=== PATIENT | male | born 1945 | race Caucasian/White ===

== ENCOUNTER 2022-04-11 21:20 | Inpatient (IN) | payer MEDICARE, BC ==
[~2022-04-11] VITALS: Ht 193 cm; Wt 107.0 kg
[2022-04-11 22:52] LABS: Basophils # (auto) 0 10 ^3/uL (0-0.2); Basophils % (auto) 0.2 % (0.0-2.0); Eosinophils # (auto) 0 10 ^3/uL (0-0.8); Hematocrit 48.9 % (41.0-53.0); Hemoglobin 16.8 g/dL (13.5-17.5); Lymphocytes # (auto) 1.1 10 ^3/uL (0.4-5.4); Lymphocytes % (auto) 7.8 % (10.0-50.0); Mean Corpuscular Hemoglobin 32.7 pg (28.0-32.0); Mean Corpuscular Hgb Conc. 34.3 g/dL (32.0-36.0); Mean Corpuscular Volume 95.4 fL (80.0-100.0); Monocytes # (auto) 0.9 10 ^3/uL (0-1.3); Monocytes % (auto) 6.1 % (0.0-12.0); Neutrophils # (auto) 12.7 10 ^3/uL (1.6-8.6); Neutrophils % (auto) 85.9 % (37.0-80.0); Red Blood Cells 5.13 10^6/uL (4.5-5.90); Red Cell Distribution Width 13.7 % (11.8-14.3); White Blood Cell 14.8 10^3/uL (4.4-10.8)
[2022-04-11 23:11] LABS: Albumin 3.4 g/dL (3.4-5.0); BUN/Creatinine Ratio 13.6; Calcium 9.6 mg/dL (8.5-10.1); Potassium 4.2 mmol/L (3.5-5.1)
[2022-04-11 23:14] LABS: Bilirubin, Total 1.5 mg/dL (0.2-1.0); Total Protein 7.1 g/dL (6.4-8.2)
[2022-04-11] MEDS: SODIUM CHLORIDE 0.9% 1,000 ML IV SCH (23:20)
[2022-04-12] MEDS ORDERED: cefTRIAXone 1GM/50ML D5W 50 ML IV ONE (10:15)
[2022-04-12] MEDS ORDERED: AZITHROMYCIN 500MG/ 250ML 250 ML IV ONE (10:15)
[2022-04-12] MEDS ORDERED: IPRATROPIUM BROM 0.5 MG/2.5ML INH SOL NEB ONE (10:15)
[2022-04-12] MEDS ORDERED: ALBUTEROL SULF 2.5 MG/0.5ML(0.5%) NEB SOLN NEB ONE (10:15)
[2022-04-12] MEDS ORDERED: IPRATROPIUM BROM 0.5 MG/2.5ML INH SOL ONE (10:26)
[2022-04-12] MEDS ORDERED: ALBUTEROL SULF 2.5 MG/0.5ML(0.5%) NEB SOLN ONE (10:26)
[2022-04-12] MEDS ORDERED: NICOTINE 21MG/24 HR TOPICAL PATCH TD ONE (10:45)
[2022-04-12] MEDS ORDERED: levoFLOXacin 500MG 100 ML IV ONE (10:45)
[2022-04-12] MEDS ORDERED: ALBUTEROL SULF 2.5 MG/0.5ML(0.5%) NEB SOLN NEB PRN (10:45)
[2022-04-12] MEDS ORDERED: SODIUM CHLORIDE 0.9% 500 ML IV ONE (10:45)
[2022-04-12] MEDS ORDERED: IPRATROPIUM BROM 0.5 MG/2.5ML INH SOL NEB PRN (10:45)
[2022-04-12] MEDS ORDERED: DexAMETHasone SOD PHOS 10MG/1ML VIAL INJ IV ONE (10:45)
[2022-04-12 11:10] LABS: Urine Bacteria NONE SEEN /hpf (None Seen); Urine Blood Negative /uL (Negative); Urine Hyaline Cast FEW /lpf (0 - 2); Urine Mucus FEW (None Seen); Urine Specific Gravity 1.034 (1.001-1.035); Urine WBC 6 /hpf (0 - 3)
[2022-04-12 11:26] LABS: Cholesterol 159 mg/dL (< 200)
[2022-04-12 11:29] LABS: HDL Cholesterol 48 mg/dL (40-59); LDL Cholesterol 89 mg/dL (< 100); Triglycerides 176 mg/dL (< 150)
[2022-04-12] MEDS: IPRATROPIUM BROM 0.5 MG/2.5ML INH SOL NEB SCH ×2 (12:00→18:54)
[2022-04-12] MEDS: ALBUTEROL SULF 2.5 MG/0.5ML(0.5%) NEB SOLN NEB SCH ×2 (12:00→18:54)
[2022-04-12 12:14] LABS: Amphetamine Screen, Urine NEGATIVE (NEGATIVE); Barbiturate Scree,Urine NEGATIVE (NEGATIVE); Benzodiazephine Screen, Urine NEGATIVE (NEGATIVE); Cannabinoid Screen, Urine NEGATIVE (NEGATIVE); Cocaine Screen, Urine NEGATIVE (NEGATIVE); Phencyclidine Screen, Urine NEGATIVE (NEGATIVE)
[2022-04-12 12:16] LABS: Opiate Scree,Urine NEGATIVE (NEGATIVE)
[2022-04-12] MEDS: SODIUM CHLORIDE 0.9% 1,000 ML IV SCH ×2 (13:14→20:45)
[2022-04-12 13:34] VITALS: BP 127/59
[2022-04-12] MEDS ORDERED: IOHEXOL 350 MG/ML 100ML IJ ONE (17:20)
[2022-04-13] MEDS: ALBUTEROL SULF 2.5 MG/0.5ML(0.5%) NEB SOLN NEB SCH ×3 (05:29→19:07)
[2022-04-13] MEDS: IPRATROPIUM BROM 0.5 MG/2.5ML INH SOL NEB SCH ×3 (05:29→19:07)
[2022-04-13 06:15] LABS: Albumin 2.8 g/dL (3.4-5.0); BUN/Creatinine Ratio 21.5; Calcium 9.7 mg/dL (8.5-10.1); Potassium 4.5 mmol/L (3.5-5.1)
[2022-04-13 06:19] LABS: Basophils # (auto) 0 10 ^3/uL (0-0.2); Basophils % (auto) 0.1 % (0.0-2.0); Bilirubin, Total 0.8 mg/dL (0.2-1.0); Eosinophils # (auto) 0 10 ^3/uL (0-0.8); Hematocrit 42.9 % (41.0-53.0); Hemoglobin 14.9 g/dL (13.5-17.5); Lymphocytes # (auto) 0.7 10 ^3/uL (0.4-5.4); Lymphocytes % (auto) 7.4 % (10.0-50.0); Mean Corpuscular Hemoglobin 33.1 pg (28.0-32.0); Mean Corpuscular Hgb Conc. 34.6 g/dL (32.0-36.0); Mean Corpuscular Volume 95.7 fL (80.0-100.0); Monocytes # (auto) 0.4 10 ^3/uL (0-1.3); Monocytes % (auto) 3.9 % (0.0-12.0); Neutrophils # (auto) 8.6 10 ^3/uL (1.6-8.6); Neutrophils % (auto) 88.6 % (37.0-80.0); Nucleated Red Blood Cells % 0.1 %; Red Blood Cells 4.48 10^6/uL (4.5-5.90); Red Cell Distribution Width 13.7 % (11.8-14.3); Total Protein 6.7 g/dL (6.4-8.2); White Blood Cell 9.7 10^3/uL (4.4-10.8)
[2022-04-13] MEDS: SODIUM CHLORIDE 0.9% 1,000 ML IV SCH ×2 (07:39→17:27)
[2022-04-13 09:00] VITALS: BP 144/66
[2022-04-13] MEDS: ENOXAPARIN SOD 40 MG/0.4 ML SYRINGE SC SCH (09:31)
[2022-04-13] MEDS: NICOTINE 21MG/24 HR TOPICAL PATCH TD SCH (09:32)
[2022-04-13] MEDS ORDERED: AZITHROMYCIN 500MG/ 250ML 250 ML IV SCH (10:00)
[2022-04-13] MEDS ORDERED: TIMO0.5S66 EACHEYE (11:40)
[2022-04-13 13:00] VITALS: BP 131/72
[2022-04-13] MEDS ORDERED: levoFLOXacin 750MG 150 ML IV ONE (16:00)
[2022-04-13] MEDS ORDERED: LORazepam 2MG/ML-1ML VIAL IV ONE (16:00)
[2022-04-13] MEDS ORDERED: DEXTROSE (50%) 50ML SYRG IV PRN (16:00)
[2022-04-13] MEDS ORDERED: MULTIPLE VITAMINS W/ MINERALS TAB PO ONE (16:00)
[2022-04-13] MEDS ORDERED: THIAMINE 100mg/ml INJ (200mg/2ml VIAL) IV ONE (16:00)
[2022-04-13] MEDS ORDERED: FOLIC ACID 1 MG TAB PO ONE (16:00)
[2022-04-13 17:07] VITALS: BP 154/74
[2022-04-13] MEDS: ACCU-CHEK COMFORT CURVE STRIP VI SCH ×2 (17:46→22:29)
[2022-04-13] MEDS: InsuLIN REG 1unit/0.01ml Soln (100units/ml) SC SCH ×2 (17:47→22:30)
[2022-04-13 22:00] VITALS: BP 85/51
[2022-04-13] MEDS: INSULIN LANTUS (GLARGINE) 1 /0.01ml (100units/ml) SC SCH (22:29)
[2022-04-14] MEDS: SODIUM CHLORIDE 0.9% 1,000 ML IV SCH (04:44)
[2022-04-14 05:00] VITALS: BP 121/52
[2022-04-14] MEDS: ACCU-CHEK COMFORT CURVE STRIP VI SCH ×4 (06:14→22:19)
[2022-04-14] MEDS: InsuLIN REG 1unit/0.01ml Soln (100units/ml) SC SCH ×4 (06:15→22:21)
[2022-04-14 06:23] LABS: Basophils # (auto) 0 10 ^3/uL (0-0.2); Basophils % (auto) 0.2 % (0.0-2.0); Eosinophils # (auto) 0 10 ^3/uL (0-0.8); Eosinophils % (auto) 0.1 % (0.0-7.0); Hematocrit 40.5 % (41.0-53.0); Hemoglobin 14.1 g/dL (13.5-17.5); Lymphocytes # (auto) 1.6 10 ^3/uL (0.4-5.4); Mean Corpuscular Hemoglobin 33.3 pg (28.0-32.0); Mean Corpuscular Hgb Conc. 34.9 g/dL (32.0-36.0); Mean Corpuscular Volume 95.6 fL (80.0-100.0); Monocytes # (auto) 0.7 10 ^3/uL (0-1.3); Monocytes % (auto) 6.9 % (0.0-12.0); Neutrophils # (auto) 8.1 10 ^3/uL (1.6-8.6); Neutrophils % (auto) 77.8 % (37.0-80.0); Nucleated Red Blood Cells % 0.1 %; Red Blood Cells 4.23 10^6/uL (4.5-5.90); Red Cell Distribution Width 13.4 % (11.8-14.3); White Blood Cell 10.5 10^3/uL (4.4-10.8)
[2022-04-14 06:27] LABS: BUN/Creatinine Ratio 32.2; Calcium 9.3 mg/dL (8.5-10.1); Magnesium 2.7 mg/dL (1.6-2.6)
[2022-04-14] MEDS: IPRATROPIUM BROM 0.5 MG/2.5ML INH SOL NEB SCH ×3 (06:39→20:05)
[2022-04-14] MEDS: ALBUTEROL SULF 2.5 MG/0.5ML(0.5%) NEB SOLN NEB SCH ×3 (06:39→20:05)
[2022-04-14 06:42] LABS: INR 0.99 (0.9-1.15)
[2022-04-14 08:00] VITALS: BP_SYST 137; BP_SYST 142; BP_DIAS 59; BP_DIAS 72
[2022-04-14] MEDS: levoFLOXacin 750MG 150 ML IV SCH (09:40)
[2022-04-14] MEDS: NICOTINE 21MG/24 HR TOPICAL PATCH TD SCH (09:40)
[2022-04-14] MEDS: PANTOPRAZOLE 40 MG TAB PO SCH (09:43)
[2022-04-14] MEDS: ENOXAPARIN SOD 40 MG/0.4 ML SYRINGE SC SCH (09:43)
[2022-04-14] MEDS: ASPirin-EC 81 mg tab PO SCH (09:43)
[2022-04-14] MEDS: THIAMINE 100mg/ml INJ (200mg/2ml VIAL) IV SCH (09:43)
[2022-04-14] MEDS: MULTIPLE VITAMINS W/ MINERALS TAB PO SCH (09:43)
[2022-04-14] MEDS: FOLIC ACID 1 MG TAB PO SCH (09:45)
[2022-04-14 12:00] VITALS: BP 150/68
[2022-04-14] MEDS ORDERED: CHOLECALCIFEROL (VITD3) 2,000 UNIT CAP/TAB PO ONE (14:00)
[2022-04-14 17:00] VITALS: BP 134/62
[2022-04-14 22:00] VITALS: BP 113/65
[2022-04-14] MEDS: INSULIN LANTUS (GLARGINE) 1 /0.01ml (100units/ml) SC SCH (22:20)
[2022-04-15 05:00] VITALS: BP 148/67
[2022-04-15] MEDS: ACCU-CHEK COMFORT CURVE STRIP VI SCH ×4 (06:19→21:59)
[2022-04-15] MEDS: InsuLIN REG 1unit/0.01ml Soln (100units/ml) SC SCH ×4 (06:19→22:02)
[2022-04-15] MEDS: IPRATROPIUM BROM 0.5 MG/2.5ML INH SOL NEB SCH ×3 (06:31→19:24)
[2022-04-15] MEDS: ALBUTEROL SULF 2.5 MG/0.5ML(0.5%) NEB SOLN NEB SCH ×3 (06:32→19:24)
[2022-04-15] MEDS: MULTIPLE VITAMINS W/ MINERALS TAB PO SCH (09:00)
[2022-04-15] MEDS: levoFLOXacin 750MG 150 ML IV SCH (09:00)
[2022-04-15] MEDS: ENOXAPARIN SOD 40 MG/0.4 ML SYRINGE SC SCH (09:00)
[2022-04-15] MEDS: NICOTINE 21MG/24 HR TOPICAL PATCH TD SCH (09:00)
[2022-04-15] MEDS: ASPirin-EC 81 mg tab PO SCH (09:01)
[2022-04-15] MEDS: FOLIC ACID 1 MG TAB PO SCH (09:01)
[2022-04-15] MEDS: CHOLECALCIFEROL (VITD3) 2,000 UNIT CAP/TAB PO SCH (09:01)
[2022-04-15] MEDS: PANTOPRAZOLE 40 MG TAB PO SCH (09:01)
[2022-04-15] MEDS: THIAMINE 100mg/ml INJ (200mg/2ml VIAL) IV SCH (09:01)
[2022-04-15 09:30] VITALS: BP 107/52
[2022-04-15 10:43] VITALS: BP 107/52
[2022-04-15 16:38] VITALS: BP 130/66
[2022-04-15] MEDS: INSULIN LANTUS (GLARGINE) 1 /0.01ml (100units/ml) SC SCH (22:03)
[2022-04-15 22:10] VITALS: BP 113/51
[2022-04-16 05:20] VITALS: BP 120/62
[2022-04-16] MEDS: ACCU-CHEK COMFORT CURVE STRIP VI SCH ×2 (06:15→12:28)
[2022-04-16] MEDS: InsuLIN REG 1unit/0.01ml Soln (100units/ml) SC SCH ×2 (06:19→12:29)
[2022-04-16] MEDS: IPRATROPIUM BROM 0.5 MG/2.5ML INH SOL NEB SCH ×2 (07:12→12:00)
[2022-04-16] MEDS: ALBUTEROL SULF 2.5 MG/0.5ML(0.5%) NEB SOLN NEB SCH ×2 (07:12→12:00)
[2022-04-16 09:00] VITALS: BP 129/58
[2022-04-16] MEDS: levoFLOXacin 750MG 150 ML IV SCH (10:14)
[2022-04-16] MEDS: THIAMINE 100mg/ml INJ (200mg/2ml VIAL) IV SCH (10:14)
[2022-04-16] MEDS: ENOXAPARIN SOD 40 MG/0.4 ML SYRINGE SC SCH (10:15)
[2022-04-16] MEDS: CHOLECALCIFEROL (VITD3) 2,000 UNIT CAP/TAB PO SCH (10:15)
[2022-04-16] MEDS: PANTOPRAZOLE 40 MG TAB PO SCH (10:15)
[2022-04-16] MEDS: FOLIC ACID 1 MG TAB PO SCH (10:15)
[2022-04-16] MEDS: ASPirin-EC 81 mg tab PO SCH (10:15)
[2022-04-16] MEDS: MULTIPLE VITAMINS W/ MINERALS TAB PO SCH (10:15)
[2022-04-16] MEDS: NICOTINE 21MG/24 HR TOPICAL PATCH TD SCH (10:16)
[2022-04-16] MEDS ORDERED: INSLANTI SC (12:01)
[2022-04-16] MEDS ORDERED: MULT-351 PO (12:01)
[2022-04-16] MEDS ORDERED: ALBUAER3 IN (12:01)
[2022-04-16] MEDS ORDERED: METF-371 PO (12:01)
[2022-04-16] MEDS ORDERED: LEVO750T8 PO (12:01)
[2022-04-16] MEDS ORDERED: CHOL20007 PO (12:01)
[2022-04-16] MEDS ORDERED: NIC21P TOP (12:01)
== END 2022-04-16 15:17 | disposition home health service (06) | DRG 177 ==
LOC: EDBD 21:20 → ER 21:25 → TELE 04-12 10:39 → TELE-WESTW 04-13 09:08
PROVIDERS: ADMIT Registered Nurse; ATTEND Internal Medicine
DX: J69.0 Pneumonitis due to inhalation of food and vomit (principal); J96.01 Acute respiratory failure with hypoxia; J44.1 Chronic obstructive pulmonary disease with (acute) exacerbation; J98.11 Atelectasis; R91.1 Solitary pulmonary nodule; F17.210 Nicotine dependence, cigarettes, uncomplicated; E11.9 Type 2 diabetes mellitus without complications; E55.9 Vitamin D deficiency, unspecified; G20 Parkinson's disease; R80.9 Proteinuria, unspecified; F10.10 Alcohol abuse, uncomplicated; R81 Glycosuria; Z88.0 Allergy status to penicillin; Z71.6 Tobacco abuse counseling; Z20.822 Contact with and (suspected) exposure to COVID-19
CPT/HCPCS: 36415; 36600; 70450; 70551; 71045; 71275; 74176; 80048; 80053; 80061; 80307; 80320; 81001; 82306; 82805; 82962; 83036; 83605; 83735; 83880; 84443; 84484; 85025; 85379; 85610; 87040; 87086; 93005; 93306; 93886; 94640; 97110; 97116; 97163; 97530; G0378; J1100; J1815; J1956

== ENCOUNTER 2022-12-11 08:00 | Inpatient (IN) | payer MEDICARE, BC ==
[~2022-12-11] VITALS: Ht 193 cm; Wt 91.2 kg
[~2022-12-11 08:00] MED LIST: ALBUAER3 IN; INSLANTI SC; LEVO750T8 PO; METF-371 PO; MULT-351 PO; NIC21P TOP; TIMO0.5S66 EACHEYE
[2022-12-11 09:33] LABS: Basophils # (auto) 0 10 ^3/uL (0-0.2); Basophils % (auto) 0.3 % (0.0-2.0); Eosinophils # (auto) 0.1 10 ^3/uL (0-0.8); Eosinophils % (auto) 1.1 % (0.0-7.0); Hematocrit 45.4 % (41.0-53.0); Hemoglobin 15.5 g/dL (13.5-17.5); Lymphocytes # (auto) 1.2 10 ^3/uL (0.4-5.4); Lymphocytes % (auto) 16.6 % (10.0-50.0); Mean Corpuscular Hemoglobin 33.3 pg (28.0-32.0); Mean Corpuscular Volume 97.7 fL (80.0-100.0); Monocytes # (auto) 0.5 10 ^3/uL (0-1.3); Monocytes % (auto) 7.4 % (0.0-12.0); Neutrophils # (auto) 5.5 10 ^3/uL (1.6-8.6); Neutrophils % (auto) 74.6 % (37.0-80.0); Red Blood Cells 4.65 10^6/uL (4.5-5.90); White Blood Cell 7.3 10^3/uL (4.4-10.8)
[2022-12-11 09:47] LABS: Albumin 3.8 g/dL (3.4-5.0); Potassium 4.8 mmol/L (3.5-5.1)
[2022-12-11 09:52] LABS: BUN/Creatinine Ratio 18.8; Bilirubin, Total 0.4 mg/dL (0.2-1.0); Total Protein 6.4 g/dL (6.4-8.2)
[2022-12-11 11:11] LABS: Urine Bacteria NONE SEEN /hpf (None Seen); Urine Blood Negative /uL (Negative); Urine Specific Gravity 1.016 (1.001-1.035); Urine WBC 1 /hpf (0 - 3)
[2022-12-11] MEDS ORDERED: HYDROcodone-ACET 5/325MG TAB PO PRN (12:15)
[2022-12-11] MEDS ORDERED: DOCUSATE SOD 100 MG CAP PO PRN (12:15)
[2022-12-11] MEDS ORDERED: ONDANSETRON HCL 4 MG/2 ML VIAL IV PRN (12:15)
[2022-12-11] MEDS ORDERED: ACETAMINOPHEN 325 MG TAB PO PRN (12:15)
[2022-12-11] MEDS ORDERED: ALBUTEROL SULF HFA 90MCG INH 200DOSE IN PRN (12:15)
[2022-12-11] MEDS ORDERED: DEXTROSE (50%) 50ML SYRG IV PRN (12:15)
[2022-12-11] MEDS ORDERED: MORPHINE SULFATE INJ 2 MG/ml SYRG IV PRN (12:15)
[2022-12-11] MEDS ORDERED: NITROGLYCERIN 0.4 MG SL TAB SL PRN (12:15)
[2022-12-11] MEDS: SODIUM CHLOR 0.9% PF (SALINE LOCK) 10ML VIAL/SYR IV SCH ×2 (13:33→22:05)
[2022-12-11] MEDS: ACCU-CHEK COMFORT CURVE STRIP VI SCH ×2 (17:30→22:09)
[2022-12-11] MEDS ORDERED: PANTOPRAZOLE 40 MG/10 ML VIAL INJ IV ONE (18:15)
[2022-12-11] MEDS: InsuLIN REG 1unit/0.01ml Soln (100units/ml) SC SCH ×2 (18:18→22:08)
[2022-12-11] MEDS: metFORMIN HYDROCHLORIDE 850 MG TAB PO SCH (22:06)
[2022-12-11] MEDS: TIMOLOL MAL 0.5% OPTH(EYE) SOL 5ML EACHEYE SCH ×2 (22:07→22:19)
[2022-12-11] MEDS: INSULIN LANTUS (GLARGINE) 1 /0.01ml (100units/ml) SC SCH (22:08)
[2022-12-12] MEDS: SODIUM CHLOR 0.9% PF (SALINE LOCK) 10ML VIAL/SYR IV SCH ×3 (05:48→22:03)
[2022-12-12] MEDS: InsuLIN REG 1unit/0.01ml Soln (100units/ml) SC SCH ×4 (06:51→22:00)
[2022-12-12] MEDS: ACCU-CHEK COMFORT CURVE STRIP VI SCH ×4 (06:51→22:03)
[2022-12-12] MEDS: MULTIPLE VITAMINS W/ MINERALS TAB PO SCH (10:00)
[2022-12-12] MEDS: NICOTINE 21MG/24 HR TOPICAL PATCH TD SCH (10:00)
[2022-12-12] MEDS: TIMOLOL MAL 0.5% OPTH(EYE) SOL 5ML EACHEYE SCH ×2 (10:00→22:00)
[2022-12-12] MEDS: metFORMIN HYDROCHLORIDE 850 MG TAB PO SCH ×2 (10:32→22:12)
[2022-12-12] MEDS ORDERED: ASPirin 81 mg TAB PO ONE (11:00)
[2022-12-12] MEDS ORDERED: ENOXAPARIN SOD 100 MG/1 ML SYRINGE SC ONE (12:45)
[2022-12-12] MEDS: amLODIPine BESYLATE 5 MG TAB PO SCH (13:52)
[2022-12-12 21:16] VITALS: BP 137/75
[2022-12-12 22:00] VITALS: BP 137/75
[2022-12-12] MEDS: INSULIN LANTUS (GLARGINE) 1 /0.01ml (100units/ml) SC SCH (22:02)
[2022-12-13] VITALS (7 sets, daily range): BP systolic 106–148; BP diastolic 63–80
[2022-12-13] MEDS: SODIUM CHLOR 0.9% PF (SALINE LOCK) 10ML VIAL/SYR IV SCH ×2 (05:34→14:00)
[2022-12-13] MEDS: ACCU-CHEK COMFORT CURVE STRIP VI SCH ×3 (06:24→17:00)
[2022-12-13] MEDS: InsuLIN REG 1unit/0.01ml Soln (100units/ml) SC SCH ×3 (06:24→17:00)
[2022-12-13] MEDS ORDERED: ADENOSINE 77 MG in GIVE UN-DILUTED 0 ML IV STA (08:18)
[2022-12-13] MEDS ORDERED: ASPirin 81 mg TAB PO SCH (10:00)
[2022-12-13] MEDS: TIMOLOL MAL 0.5% OPTH(EYE) SOL 5ML EACHEYE SCH (10:00)
[2022-12-13] MEDS ORDERED: ENOXAPARIN SOD 100 MG/1 ML SYRINGE SC SCH (10:00)
[2022-12-13] MEDS: NICOTINE 21MG/24 HR TOPICAL PATCH TD SCH (10:00)
[2022-12-13] MEDS: MULTIPLE VITAMINS W/ MINERALS TAB PO SCH (10:50)
[2022-12-13] MEDS: metFORMIN HYDROCHLORIDE 850 MG TAB PO SCH (10:51)
[2022-12-13] MEDS: amLODIPine BESYLATE 5 MG TAB PO SCH (10:53)
[2022-12-13] MEDS ORDERED: ASPI1TAB20 PO (15:53)
[2022-12-13] MEDS ORDERED: APIX5TAB PO (15:53)
[2022-12-13] MEDS ORDERED: AML5T PO (15:53)
== END 2022-12-13 18:30 | disposition home or self-care (01) | DRG 313 ==
LOC: EDBD 08:00 → EDUNIT# 08:00 → ER 08:00 → TELE 12:05 → TELE-EAST 12-12 20:47
PROVIDERS: ADMIT Internal Medicine; ATTEND Internal Medicine Geriatric Medicine
DX: R07.89 Other chest pain (principal); D35.01 Benign neoplasm of right adrenal gland; D35.02 Benign neoplasm of left adrenal gland; E11.9 Type 2 diabetes mellitus without complications; G20 Parkinson's disease; I44.7 Left bundle-branch block, unspecified; I48.91 Unspecified atrial fibrillation; I71.40 Abdominal aortic aneurysm, without rupture, unspecified; I10 Essential (primary) hypertension; J44.9 Chronic obstructive pulmonary disease, unspecified; I25.2 Old myocardial infarction; Z88.0 Allergy status to penicillin
CPT/HCPCS: 36415; 74176; 78452; 80053; 81001; 82962; 83690; 84484; 85025; 87426; 93005; 93017; 93306; 96374; 96375; C9113; G0378; J0153; J1815